=== PATIENT | female | born 1940 | race Caucasian/White ===

== ENCOUNTER 2016-09-12 13:23 | Emergency (ER) | payer MEDICARE, OTHER ==
[~2016-09-12 13:23] MED LIST: CARDIZEM CD300 MG PO; CHILDRENS CHEWA81 MG PO; DOK100 MG PO; DUONEB 2.5-0.5MG3 ML INH; LEVOTHYROXINE112 MCG PO; LOVASTATIN20 MG PO; NICODERM 14MG PA1 EA TD; NORTRIPTYLINE H50 MG PO; PANTOPRAZOLE SO40 MG PO; PREDNISONE10 MG PO; PROCTOSOL HC MC; ZITHROMAX250 MG PO
== END 2016-09-12 15:34 | disposition home or self-care (01) ==
LOC: ER 13:23
DX: M25.551 Pain in right hip (principal); W19.XXXD Unspecified fall, subsequent encounter; J44.9 Chronic obstructive pulmonary disease, unspecified; F17.210 Nicotine dependence, cigarettes, uncomplicated; Z79.82 Long term (current) use of aspirin; Z79.899 Other long term (current) drug therapy
CPT/HCPCS: 72192; 96372; 99283; 99283-25

== ENCOUNTER 2016-10-29 15:23 | Emergency (ER) | payer MEDICARE, OTHER ==
[2016-10-29 17:59] LABS: BASO # 0.1 10_X3_uL (0.0-0.1); EOS # 0.6 10_X3_uL (0.0-0.4); EOS % 7.7 % (0.7-5.8); GRAN # 4.5 10_X3_uL (1.6-6.1); GRAN % 56.6 % (34.0-71.1); HEMATOCRIT 50.8 % (34-45); HEMOGLOBIN 16.8 g/dL (11.2-15.7); LYMPH # 2.3 10_X3_uL (1.2-3.7); LYMPH % 29.1 % (19.3-51.7); MEAN CORPUSCULAR HEMOGLOBIN 31.6 pg (27.0-33.0); MEAN CORPUSCULAR HGB CONC 33.1 g/dL (32.0-36.0); MEAN CORPUSCULAR VOLUME 95.5 fL (79-95); MEAN PLATELET VOLUME 10.5 fl (7.5-11.5); MONO # 0.5 10_X3_uL (0.2-0.9); MONO % 5.6 % (4.7-12.5); PLATELET COUNT 224 x10_3/uL (182-369); RED BLOOD COUNT 5.32 x10_6/uL (3.9-5.2); RED CELL DISTRIBUTION WIDTH 15.4 % (11.7-14.4)
[2016-10-29 18:25] LABS: ALBUMIN 4.2 gm/dL (3.4-5.0); BILIRUBIN,TOTAL 0.26 mg/dL (0.0-1.0); CALCIUM 9.2 mg/dL (8.7-10.7); CREATININE 1.1 mg/dL (0.6-1.3); TOTAL PROTEIN 7.4 gm/dL (6.4-8.2)
[2016-10-29 18:31] LABS: POTASSIUM 4.4 mmol/L (3.5-5.1)
[2016-10-29 19:11] LABS: THYROID STIMULATING HORMONE 25.73 uIU/mL (0.34-4.82)
[2016-10-29 19:12] LABS: FREE T4 0.831 ng/dL (0.93-1.7)
== END 2016-10-29 17:41 | disposition home or self-care (01) ==
LOC: ER 15:23
PROVIDERS: Emergency Medicine
DX: M25.551 Pain in right hip (principal); G89.29 Other chronic pain; J44.9 Chronic obstructive pulmonary disease, unspecified; M54.30 Sciatica, unspecified side; Z79.899 Other long term (current) drug therapy; Z79.82 Long term (current) use of aspirin; Z88.1 Allergy status to other antibiotic agents
CPT/HCPCS: 36415; 80053; 80061; 84439; 84443; 85025; 96372; 99282-25; 99283

== ENCOUNTER 2016-12-08 14:24 | Emergency (ER) | payer MEDICARE, OTHER ==
[2016-12-08 15:18] LABS: BASO % 0.4 % (0.1-1.2); EOS # 0.8 10_X3_uL (0.0-0.4); EOS % 7.9 % (0.7-5.8); GRAN # 6.2 10_X3_uL (1.6-6.1); GRAN % 60.5 % (34.0-71.1); HEMATOCRIT 44.3 % (34-45); HEMOGLOBIN 14.5 g/dL (11.2-15.7); LYMPH # 2.5 10_X3_uL (1.2-3.7); LYMPH % 24.5 % (19.3-51.7); MEAN CORPUSCULAR HEMOGLOBIN 31.4 pg (27.0-33.0); MEAN CORPUSCULAR HGB CONC 32.7 g/dL (32.0-36.0); MEAN CORPUSCULAR VOLUME 95.9 fL (79-95); MEAN PLATELET VOLUME 10.7 fl (7.5-11.5); MONO # 0.7 10_X3_uL (0.2-0.9); MONO % 6.7 % (4.7-12.5); PLATELET COUNT 180 x10_3/uL (182-369); RED BLOOD COUNT 4.62 x10_6/uL (3.9-5.2); RED CELL DISTRIBUTION WIDTH 15.1 % (11.7-14.4); WHITE BLOOD COUNT 10.3 x10_3/uL (4.0-10.0)
[2016-12-08 15:37] LABS: ALBUMIN 3.5 gm/dL (3.4-5.0); ALKALINE PHOSPHATASE 75 U/L (50-136); ALT/SGPT 11 U/L (3.5-33.9); AST/SGOT 8 U/L (7.04-26.96); BILIRUBIN,TOTAL 0.22 mg/dL (0.0-1.0); BLOOD UREA NITROGEN 11 mg/dL (7-18); CALCIUM 8.8 mg/dL (8.7-10.7); CARBON DIOXIDE 22 mmol/L (21-32); CREATINE KINASE 25 U/L (21-215); CREATININE 0.8 mg/dL (0.6-1.3); GLUCOSE,RANDOM 89 mg/dL (70-99); POTASSIUM 3.9 mmol/L (3.5-5.1); SODIUM 139 mmol/L (136-145); TOTAL PROTEIN 6.1 gm/dL (6.4-8.2)
== END 2016-12-08 17:23 ==
LOC: ER 14:24
PROVIDERS: Emergency Medicine
DX: J44.9 Chronic obstructive pulmonary disease, unspecified (principal); R06.02 Shortness of breath; R05 Cough; Z99.81 Dependence on supplemental oxygen; I50.9 Heart failure, unspecified; F17.210 Nicotine dependence, cigarettes, uncomplicated; Z79.899 Other long term (current) drug therapy; Z88.1 Allergy status to other antibiotic agents
CPT/HCPCS: 36415; 71010; 80053; 82550; 82553; 83880; 85025; 93005; 94640; 94664; 96372; 99284; 99285-25; J2930